=== PATIENT | male | born 1980 | race Asian ===

== ENCOUNTER 2025-05-18 08:40 | Inpatient (IN) | payer OTHER ==
[~2025-05-18] VITALS: Ht 172.7 cm; Wt 76.4 kg
[2025-05-18] MEDS ORDERED: IBUP-1492 PO (08:48)
[2025-05-18] MEDS ORDERED: SODIUM CHLORIDE 0.9% 100 ML ONE (09:11)
[2025-05-18] MEDS ORDERED: IOHEXOL 350 MG/ML 100 ML VIAL ONE (09:11)
[2025-05-18 09:21] LABS: PLATELET COUNT (AUTO) 209 K/uL (150-450); RED BLOOD CELL COUNT(AUTO) 4.79 MIL/uL (4.50-5.90); RED CELL DISTRIBUTION WIDTH 13.4 % (11.5-14.5); WHITE BLOOD COUNT (AUTO) 9.1 K/uL (4.5-11.0)
[2025-05-18] MEDS: ONDANSETRON HCL 4 MG/2 ML VIAL IVP ONE (09:23)
[2025-05-18] MEDS: MORPHINE SULFATE 2 MG/ML SYRINGE IVP ONE ×2 (09:24→11:46)
[2025-05-18 09:26] LABS: CALCIUM, TOTAL 8.6 mg/dL (8.8-10.5); CREATININE 0.86 mg/dL (0.60-1.30); GLOMERULAR FILTR. RATE CALC > 60 mL/min (>60); GLUCOSE,RANDOM 101 mg/dL (70-110); SODIUM SERUM 139 mmol/L (136-145); UREA NITROGEN, BLOOD 10 mg/dL (7-18)
[2025-05-18 09:37] LABS: LACTIC ACID 0.7 mmol/L (0.4-2.0)
[2025-05-18] MEDS: PIPERACILLIN/TAZO 3.375 GM/D5W 50 ML IV SCH ×2 (11:46→23:55)
[2025-05-18] MEDS ORDERED: MORPHINE SULFATE 4 MG/ML VIAL IVP PRN ×2 (16:00→17:15)
[2025-05-18 16:30] VITALS: BP 119/70; PULSE 65; RESP 18; TEMP 98.2; O2SAT 100
[2025-05-18] MEDS ORDERED: SODIUM CHLORIDE 0.9% 500 ML IV ONE (16:33)
[2025-05-18] MEDS ORDERED: IPRATROPIUM BROMIDE 0.5 MG/2.5 ML NEB SOLUTION NEB PRN (17:15)
[2025-05-18] MEDS ORDERED: BISACODYL 10 MG RECTAL RECTAL SUPPOSITORY PR PRN (17:15)
[2025-05-18] MEDS ORDERED: ZOLPIDEM TARTRATE 5 MG TABLET PO PRN (17:15)
[2025-05-18] MEDS ORDERED: MAGNESIUM HYDROXIDE SUSPENSION 30 ML UDCUP PO PRN (17:15)
[2025-05-18] MEDS ORDERED: HYDROCODONE/ACETAMINOPHEN 5-325 MG TABLET PO PRN (17:15)
[2025-05-18] MEDS ORDERED: ONDANSETRON HCL 4 MG/2 ML VIAL IVP PRN (17:15)
[2025-05-18] MEDS ORDERED: ALBUTEROL SULFATE 2.5 MG/0.5 ML NEB SOLUTION NEB PRN (17:15)
[2025-05-18] MEDS: DEXTROSE 5%-0.45% SODIUM CHL 1,000 ML IV SCH (17:47)
[2025-05-18] MEDS: PANTOPRAZOLE SODIUM 40 MG/VIAL IVP SCH (17:48)
[2025-05-18] MEDS: ACETAMINOPHEN 325 MG TABLET PO PRN (17:48)
[2025-05-18] MEDS ORDERED: PRAZ5 PO (18:58)
[2025-05-18] MEDS ORDERED: GABA-1181 PO (18:58)
[2025-05-18] MEDS ORDERED: SIME80TA82 PO (18:58)
[2025-05-18] MEDS ORDERED: FLUT16SP NASAL (18:58)
[2025-05-18] MEDS ORDERED: LOPE-232 PO (18:58)
[2025-05-18] MEDS ORDERED: MODA100T65 PO (18:58)
[2025-05-18] MEDS ORDERED: OLOP5DRO28 OU (18:58)
[2025-05-18] MEDS ORDERED: SERT-162 PO (18:58)
[2025-05-18] MEDS ORDERED: SUMA100T21 PO (18:58)
[2025-05-18] MEDS ORDERED: LORA10TA7 PO (18:58)
[2025-05-18] MEDS ORDERED: PSYL575P22 PO (18:58)
[2025-05-18] MEDS ORDERED: HYDR-5256 PO (18:58)
[2025-05-18] MEDS ORDERED: BUSP15 PO (18:58)
[2025-05-18] MEDS ORDERED: MECL-302 PO (18:58)
[2025-05-18] MEDS ORDERED: ARIP10TA38 PO (18:58)
[2025-05-18] MEDS ORDERED: PROP40TA7 PO (18:58)
[2025-05-18 19:53] VITALS: BP 116/62; PULSE 70; RESP 17; TEMP 98.2; O2SAT 98
[2025-05-18] MEDS: DOCUSATE SODIUM 100 MG CAPSULE PO SCH (20:20)
[2025-05-18] MEDS: MetroNIDAZOLE 500 MG/NACL 100 ML IV SCH (20:21)
[2025-05-18] MEDS ORDERED: ALBU2SYR26 PO (21:32)
[2025-05-18] MEDS ORDERED: SILD25 PO (21:32)
[2025-05-18] MEDS ORDERED: LIDO1ADH83 TP (21:32)
[2025-05-18] MEDS ORDERED: ESZO3TAB53 PO (21:38)
[2025-05-18] MEDS ORDERED: SODI44SP18 NASAL (21:38)
[2025-05-19 04:30] VITALS: BP 106/69; PULSE 69; RESP 17; TEMP 97.9; O2SAT 97
[2025-05-19 08:00] VITALS: BP 113/62; PULSE 58; RESP 19; TEMP 97.5; O2SAT 97
[2025-05-19 16:00] VITALS: BP 115/63; PULSE 60; RESP 20; TEMP 98.1; O2SAT 98
[2025-05-19 19:27] VITALS: BP 112/69; PULSE 59; RESP 20; TEMP 98.1; O2SAT 97
[2025-05-20] MEDS ORDERED: SODIUM CHLORIDE 0.9% 500 ML IV ONE (04:08)
[2025-05-20 04:12] VITALS: BP 109/67; PULSE 65; RESP 18; TEMP 98.1; O2SAT 99
[2025-05-20 08:00] VITALS: BP 118/69; PULSE 53; RESP 20; TEMP 98.2; O2SAT 99
[2025-05-20] MEDS ORDERED: LEVO-72 PO (10:55)
[2025-05-20] MEDS ORDERED: METR500 PO (10:56)
== END 2025-05-20 11:33 | disposition home or self-care (01) | DRG 392 ==
LOC: EMS 08:46 → EDH 13:21 → 4E 15:42
PROVIDERS: ADMIT Hospitalist; ATTEND Hospitalist
DX: K57.20 Diverticulitis of large intestine with perforation and abscess without bleeding (principal); K44.9 Diaphragmatic hernia without obstruction or gangrene; F43.10 Post-traumatic stress disorder, unspecified; G47.30 Sleep apnea, unspecified; Z79.899 Other long term (current) drug therapy
CPT/HCPCS: 74177; 80048; 83605; 85025; 93005; 96374; 96375; 96376; 99285; G0378; J2270; J2405; J2470; J2543; J3490; J7040; J7050